=== PATIENT | male | born 1950 | race Caucasian/White ===

== ENCOUNTER 2024-06-28 18:44 | Emergency (ER) | payer OTHER ==
--- NOTE | 2024-06-28 20:09 | RAD REPORT ---
EXAMINATION: XR RIGHT FOREARM CLINICAL INDICATION: . r/o fb TECHNIQUE:Two view radiograph of the right forearm were obtained. COMPARISON: No prior exam. FINDINGS: No fracture, dislocation or radiopaque foreign body. Mild soft tissue swelling dorsal forea rm.
[2024-06-28] MEDS ORDERED: LIDOCAINE 1% MPF 5 ML VIAL ONE (20:33)
[2024-06-28] MEDS ORDERED: TDAP (DIPHTH,PERTUSS(ACELL),TET VAC) 0.5 ML VIAL IMVAC ONE (20:34)
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
--- NOTE | 2024-06-28 22:12 | EDPHYS ---
Physician Documentation [facility] Name: Micky Gordon Age: 73 yrs Sex: Male : 1950 Arrival Date: 06/28/2024 Time: 18:44 Bed 26 Private MD: ED Physician Jerad Rees HPI: 06/29 00:14 This 73 yrs old Male presents to ER via Ambulatory with complaints of Wound Check. kb 00:14 Pt is a 73 year old male who presents for foreign body in right forearm. States he got kb a piece of wood stuck in his arm, his pulled it out but he still feels a piece in there. . Historical: - Allergies: 06/28 19:23 Amoxicillin; me1 19:23 Bactrim; me1 19:23 Benadryl; me1 19:23 ciclopirox; me1 19:23 Ciprofloxacin HCl; me1 19:23 econazole; me1 19:23 medical tape; me1 19:23 Morphine; me1 19:23 Ranexa; me1 19:23 Vicodin; me1 - PMHx: 19:23 Hypertensive disorder; me1 19:26 Hypothyroidism; Hypercholesterolemia; me1 - PSHx: 19:23 Coronary artery bypass graft; Operative procedure on knee; Coronary Angioplasty; me1 Appendectomy; Cholecystectomy; achilles tendon repair; melanoma excision; - Immunization history:: Adult Immunizations unknown, Last tetanus immunization: unknown. - Infectious Disease History:: Denies. - Social history:: Smoking status: Patient denies any tobacco usage or history of. ROS: 06/29 00:12 Constitutional: As per HPI kb Exam: 00:12 Constitutional: This is a well developed, well nourished patient who is awake, alert, kb and in no acute distress. Head/Face: Normocephalic, atraumatic. ENT: Moist Mucous membranes Cardiovascular: Regular rate Respiratory: Respirations even and unlabored. No increased work of breathing. Talking in full sentences MS/ Extremity: Pulses equal, no cyanosis. Neurovascular intact. Full, normal range of motion. Neuro: Awake and alert, GCS 15, oriented to person, place, time, and situation. 00:12 Skin: injury, puncture(s), that are superficial, of the palmar aspect of right forearm, Vital Signs: 06/28 19:21 BP 144 / 81; Pulse 56; Resp 17; Temp 97.8; Pulse Ox 100% ; Weight 81.65 kg; Height 5 me1 ft. 7 in. ; Pain 5/10; 19:21 Body Mass Index 28.19 (81.65 kg, 170.18 cm) me1 19:21 Pain Scale: Adult me1 Procedures: 06/29 00:13 Foreign Body Removal: sliver of wood, from the palmar aspect of right forearm, by kb incising to remove, using lidocaine 1% without epinephrine to anesthesize the area, Dressing: none, The patient tolerated the removal well. MDM: 06/28 19:30 Medical Screening Exam initiated kb 06/29 00:14 Differential diagnosis: puncture, foreign body, wound infection. Data reviewed: vital kb signs, nurses notes. Counseling: I had a detailed discussion with the patient and/or guardian regarding the historical points, exam findings, and any diagnostic results supporting the discharge/admit diagnosis, radiology results, the need for outpatient follow up, a family practitioner, to return to the emergency department if symptoms worsen or persist or if there are any questions or concerns that arise at home. 06/28 19:30 Order name: Forearm Right XRAY; Complete Time: 20:11 kb Administered Medications: 06/28 20:49 Drug: Boostrix Tdap IM 0.5 ml IM once; as a single dose Route: IM; Site: right deltoid; jb4 22:31 Follow up: Response: No adverse reaction jb4 22:00 Drug: Lidocaine Infiltration (1 %) 1 vials 5 ml Infiltration once; to bedside {Note: jb4 administered by ER provider..} Volume: 5 ml; Route: Infiltration; Disposition Summary: 06/28/24 22:12 Discharge Ordered Notes: Location: Home kb Condition: Stable kb Diagnosis - Puncture wound without foreign body of forearm kb Followup: kb - With: Emergency Department - When: As needed - Reason: Worsening of condition Followup: kb - With: Private Physician - When: 2 - 3 days - Reason: Recheck today's complaints, Continuance of care, Re-evaluation by your physician Discharge Instructions: - Discharge Summary Sheet kb - Puncture Wound, [id number] kb - Skin Foreign Body kb Forms: - Medication Reconciliation Form kb - Antibiotic Education kb - Prescription Opioid Use kb - Patient Portal Instructions kb - Leadership Thank You Letter kb Prescriptions: - Doxycycline Hyclate 100 mg Oral Tablet - take 1 tablet ORAL route every 12 hours; 20 tablet; Refills: 0, Product kb Selection Permitted Signatures: Dispatcher [employer] Marla Olvera FNP-C FNP-Ckb Bryson, James, RN RN jb4 Brianna Allen RN RN me1
[2024-06-28 22:37] VITALS: BP 144/81; TEMP 97.8; O2SAT 100
== END 2024-06-28 22:34 | disposition home or self-care (01) ==
LOC: ER 18:44
DX: S51.841A Puncture wound with foreign body of right forearm, initial encounter (principal)
CPT/HCPCS: 73090; 96372; 99284; 10120; J2003